=== PATIENT | male | born 1945 | race Caucasian/White ===

== ENCOUNTER 2020-05-18 10:43 | Observation (INO) | payer MEDICARE, OTHER ==
[~2020-05-18] VITALS: Ht 198.1 cm; Wt 112.5 kg
[~2020-05-18 10:43] MED LIST: AMLODIPINE BESYL5 MG PO; ASPIRIN 325MG325 MG PO; ASPIRIN EC81 MG PO; CATAPRES0.2 MG PO; CENTRUM MU9 MG/15 ML PO; CLARITIN10 MG PO; COLOSTRUM500 MG PO; COZAAR50 MG PO; LEVAQUIN500 MG PO; TERAZOSIN HCL1 MG PO; VASOTEC5 MG PO
[2020-05-18 11:41] LABS: HEMOGLOBIN 15.8 gm/dl (14.0-17.5); RED BLOOD COUNT 4.84 M/UL (4.20-5.50); WHITE BLOOD COUNT 12.2 K/UL (4.5-11.0)
[2020-05-18] MEDS ORDERED: LIPITOR80 MG PO (14:49)
[2020-05-18] MEDS ORDERED: LABETALOL HCL200 MG PO (14:50)
[2020-05-18] MEDS ORDERED: NAMENDA10 MG PO (14:53)
[2020-05-18] MEDS ORDERED: AMLODIPINE BESYL5 MG PO (14:56)
[2020-05-18] MEDS ORDERED: COZAAR 50MG TAB50 MG PO (14:57)
[2020-05-18] MEDS ORDERED: POTASSIUM CHLO10 ME1 PO (14:58)
[2020-05-18] MEDS ORDERED: GLIMEPIRIDE1 MG PO (15:02)
[2020-05-18] MEDS ORDERED: DONEPEZIL HCL10 MG PO (15:03)
[2020-05-18] MEDS ORDERED: FLOMAX 0.4 MG0.4 MG PO (15:04)
[2020-05-18] MEDS ORDERED: CENTRUM COMPLE1 EACH PO (16:03)
[2020-05-18] MEDS ORDERED: ASPIRIN EC81 MG PO (16:05)
[2020-05-18] MEDS ORDERED: IBUPROFEN200 MG PO (16:07)
[2020-05-19 00:51] LABS: RED BLOOD COUNT 4.67 M/UL (4.20-5.50); WHITE BLOOD COUNT 11.3 K/UL (4.5-11.0)
[2020-05-20 02:50] LABS: HEMOGLOBIN 14.5 gm/dl (14.0-17.5); RED BLOOD COUNT 4.44 M/UL (4.20-5.50); WHITE BLOOD COUNT 12.3 K/UL (4.5-11.0)
== END 2020-05-21 12:47 | disposition home or self-care (01) ==
LOC: ER1 10:43 → MED SURG 4 14:58 → CDU 14:58 → MED SURG 4 18:47
PROVIDERS: Emergency Medicine; Physician Assistant Medical; ADMIT Internal Medicine
DX: I95.1 Orthostatic hypotension (principal); E86.0 Dehydration; I12.9 Hypertensive chronic kidney disease with stage 1 through stage 4 chronic kidney disease, or unspecified chronic kidney disease; N17.9 Acute kidney failure, unspecified; N18.30 Chronic kidney disease, stage 3 unspecified; N40.0 Benign prostatic hyperplasia without lower urinary tract symptoms; F03.90 Unspecified dementia, unspecified severity, without behavioral disturbance, psychotic disturbance, mood disturbance, and anxiety; E78.5 Hyperlipidemia, unspecified; Z20.822 Contact with and (suspected) exposure to COVID-19; Z82.49 Family history of ischemic heart disease and other diseases of the circulatory system; Z79.82 Long term (current) use of aspirin; Z79.899 Other long term (current) drug therapy
CPT/HCPCS: ECHO; 36415; 70450; 71045; 72125; 73030; 80048; 80053; 81001; 82550; 82553; 83690; 83735; 83874; 83880; 84100; 84439; 84443; 84484; 85025; 85027; 85610; 85730; 93005; 93306; 93880; 99285; G0378; U0002

== ENCOUNTER 2020-08-26 01:29 | Observation (INO) | payer MEDICARE, OTHER ==
[~2020-08-26] VITALS: Ht 198.1 cm; Wt 117.9 kg
[~2020-08-26 01:29] MED LIST changes: +CENTRUM COMPLE1 EACH PO; +COZAAR 50MG TAB50 MG PO; +DONEPEZIL HCL10 MG PO; +FLOMAX 0.4 MG0.4 MG PO; +GLIMEPIRIDE1 MG PO; +IBUPROFEN200 MG PO; +LABETALOL HCL200 MG PO; +LIPITOR80 MG PO; +NAMENDA10 MG PO; +POTASSIUM CHLO10 ME1 PO
[2020-08-26] MEDS ORDERED: TOPAMAX 100 MG100 MG PO (04:49)
[2020-08-26] MEDS ORDERED: AMOXICILLIN875 MG PO (04:49)
[2020-08-26] MEDS ORDERED: DOCUSATE CALCI240 MG PO (04:50)
[2020-08-26] MEDS ORDERED: CLOPIDOGREL75 MG PO (04:52)
[2020-08-26] MEDS ORDERED: HYDRALAZINE HCL50 MG PO (04:53)
[2020-08-26] MEDS ORDERED: OLANZAPINE5 MG PO (04:54)
[2020-08-26] MEDS ORDERED: LEVETIRACETAM1000 MG PO (04:54)
[2020-08-26] MEDS ORDERED: SODIUM BICARBO650 MG PO (04:55)
[2020-08-26] MEDS ORDERED: ZONISAMIDE100 MG PO (04:57)
--- NOTE | 2020-08-26 05:33 | NUR ---
NOTIFIED DR FONG AT 0426 THAT PATIENT IS HERE FROM [place]
--- NOTE | 2020-08-26 06:03 | NUR ---
ATTEMPTED TO CALL DR FONG ABOUT PT'S ORDERS AGAIN AT 0540. NO ANSWER
[2020-08-26] MEDS ORDERED: VALTOCO10 MG/0.1 ×2 (10:08→10:14)
== END 2020-08-26 11:38 | disposition home or self-care (01) ==
LOC: MED SURG 4 01:29
PROVIDERS: ADMIT Internal Medicine
DX: G40.909 Epilepsy, unspecified, not intractable, without status epilepticus (principal); I12.9 Hypertensive chronic kidney disease with stage 1 through stage 4 chronic kidney disease, or unspecified chronic kidney disease; N18.30 Chronic kidney disease, stage 3 unspecified; F03.90 Unspecified dementia, unspecified severity, without behavioral disturbance, psychotic disturbance, mood disturbance, and anxiety; N40.0 Benign prostatic hyperplasia without lower urinary tract symptoms; E78.5 Hyperlipidemia, unspecified; E66.9 Obesity, unspecified; Z86.718 Personal history of other venous thrombosis and embolism
CPT/HCPCS: 99285; G0378; G0379

== ENCOUNTER 2020-08-26 14:19 | Emergency (ER) | payer MEDICARE, OTHER ==
[~2020-08-26 14:19] MED LIST changes: +AMOXICILLIN875 MG PO; +CLOPIDOGREL75 MG PO; +DOCUSATE CALCI240 MG PO; +HYDRALAZINE HCL50 MG PO; +LEVETIRACETAM1000 MG PO; +OLANZAPINE5 MG PO; +SODIUM BICARBO650 MG PO; +TOPAMAX 100 MG100 MG PO; +VALTOCO10 MG/0.1; +ZONISAMIDE100 MG PO
[2020-08-26 14:45] LABS: HEMOGLOBIN 14.2 gm/dl (14.0-17.5); RED BLOOD COUNT 4.37 M/UL (4.20-5.50); WHITE BLOOD COUNT 11.9 K/UL (4.5-11.0)
== END 2020-08-26 20:30 | disposition short-term general hospital (02) ==
LOC: ER1 14:19
PROVIDERS: Preventive Medicine Occupational Medicine
DX: R55 Syncope and collapse (principal); R56.9 Unspecified convulsions; I10 Essential (primary) hypertension
CPT/HCPCS: 71045; 80053; 82550; 82553; 83690; 83874; 84484; 85025; 85652; 93005; J7030